=== PATIENT | female | born 1995 | race Caucasian/White ===

== ENCOUNTER 2019-12-18 17:28 | Emergency (ER) | payer MEDICAID, OTHER ==
[~2019-12-18] VITALS: Ht 170.2 cm; Wt 108.9 kg
[2019-12-18] MEDS ORDERED: IBUPROFEN 800 MG TAB PO ONE (21:45)
[2019-12-18] MEDS ORDERED: ACETAMINOPHEN 500 MG TAB PO ONE (21:45)
[2019-12-18 22:17] VITALS: BP 131/93
== END 2019-12-18 22:20 | disposition home or self-care (01) ==
LOC: ER 17:28
DX: M54.9 Dorsalgia, unspecified (principal); V43.62XA Car passenger injured in collision with other type car in traffic accident, initial encounter; Y93.89 Activity, other specified; Y92.488 Other paved roadways as the place of occurrence of the external cause; Y99.8 Other external cause status